=== PATIENT | male | born 1965 | race Caucasian/White ===

== ENCOUNTER 2020-01-02 03:09 | Emergency (ER) | payer MEDICAID ==
[~2020-01-02] VITALS: Ht 165.1 cm; Wt 77.1 kg
[2020-01-02 03:10] VITALS: BP 159/95
--- NOTE | 2020-01-02 03:10 | NUR ---
to bed # 11 ambulatory
--- NOTE | 2020-01-02 03:24 | NUR ---
54 YO MALE CO LEFT FLANK PAIN X4D. BURNING PAIN 3/10 THAT RADIATES TO ABD AREA. NO N/V/D. PT IS NOT TAKING ANY RX MEDS AND HAS NO MED HX. NO ALLERGIES. PT IS SITTING IN BED WITH AT BEDSIDE.
[2020-01-02] MEDS ORDERED: KETOROLAC 60 MG/2 ML VIAL IM ONE (03:40)
--- NOTE | 2020-01-02 03:41 | NUR ---
Dr. Conklin examining patient.
[2020-01-02 03:57] VITALS: BP 159/95
--- NOTE | 2020-01-02 03:58 | NUR ---
Patient discharged with v/s stable. Written and verbal after care instructions given and explained. Patient alert, oriented and verbalized understanding of instructions. Ambulatory with steady gait. All questions addressed prior to discharge. ID band removed. Patient advised to follow up with PMD. Rx of ACYCLOVIR, MOTRIN AND NORCO given. Patient educated on indication of medication including possible reaction and side effects. Opportunity to ask questions provided and answered.
== END 2020-01-02 03:58 | disposition home or self-care (01) ==
LOC: MED 03:09
DX: B02.9 Zoster without complications (principal)
CPT/HCPCS: 81002; 99282; J1885